=== PATIENT | female | born 1985 | race Two or more races ===

== ENCOUNTER 2023-10-26 10:54 | Emergency (ER) | payer OTHER ==
[~2023-10-26] VITALS: Ht 170.2 cm; Wt 108.9 kg
[2023-10-26] MEDS ORDERED: COZAAR25 MG (11:03)
[2023-10-26] MEDS ORDERED: CETIRIZINE HCL 5 MG/5 ML ML PO ONE (14:30)
[2023-10-26] MEDS ORDERED: DEXAMETHASONE SODIUM PHOSPHATE 4 MG/ML VIAL IM ONE (14:45)
[2023-10-26] MEDS ORDERED: CETIRIZINE HCL 5MG/5ML BLIST.PACK PO ONE (15:06)
[2023-10-26] MEDS ORDERED: DEXAMETHASONE SODIUM PHOSPHATE 4 MG/ML VIAL ONE (15:06)
[2023-10-26 15:50] LABS: HEMATOCRIT 38.5 % (36.0-45.00); HEMOGLOBIN 12.7 g/dL (12.0-15.00); MEAN CELL VOLUME 82.7 fL (80.00-100.00); MEAN CORPUSCULAR HEMOGLOBIN 27.2 pg (27.00-32.0); PLATELET COUNT 393 K/uL (150-450); RED BLOOD COUNT 4.65 M/uL (4.00-6.00); RED CELL DISTRIBUTION WIDTH 13.6 % (11.5-14.5)
[2023-10-26] MEDS ORDERED: XYZAL5 MG PO (17:57)
[2023-10-26] MEDS ORDERED: CORTISPORIN EAR10 M1 OTIC (17:57)
[2023-10-26] MEDS ORDERED: CIPRO500 MG PO (18:04)
== END 2023-10-26 18:46 | disposition home or self-care (01) ==
LOC: ER 10:55
PROVIDERS: Nurse Practitioner Family
DX: J06.9 Acute upper respiratory infection, unspecified (principal); Z88.0 Allergy status to penicillin; H66.90 Otitis media, unspecified, unspecified ear; Z20.822 Contact with and (suspected) exposure to COVID-19